=== PATIENT | female | born 1965 | race Caucasian/White ===

== ENCOUNTER 2021-06-16 19:07 | Emergency (ER) | payer BC, SELFPAY ==
[2021-06-16 19:21] VITALS: BP 152/89; PULSE 66; RESP 18; TEMP 36.2; O2SAT 98
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
== END 2021-06-16 20:18 | disposition home or self-care (01) ==
PROVIDERS: Emergency Provider Nurse Practitioner; PCP Physician Assistant
DX: T55.0X1A Toxic effect of soaps, accidental (unintentional), initial encounter (principal); T26.61XA Corrosion of cornea and conjunctival sac, right eye, initial encounter; S05.01XA Injury of conjunctiva and corneal abrasion without foreign body, right eye, initial encounter; Z85.3 Personal history of malignant neoplasm of breast; Z92.21 Personal history of antineoplastic chemotherapy
CPT/HCPCS: 99213; A9270; G0463; J7030

== ENCOUNTER 2025-02-07 15:59 | Emergency (ER) | payer OTHER, SELFPAY ==
--- OUTSIDE RECORDS SUMMARY | 2025-02-07 16:02 | XMS_ITS ---
Author Organization [facility] Address [address] [place] [address] Care Team Providers Care Para Professional Name Role Phone Yuki Abad MD Unavailable Jodi Lott MD Unavailable [phone] Shiraz Rust PhD Unavailable [phone] Ileana Salinas FLATWORK SUPERVISOR Primary Care Provider [phone] Active Problems Problem Noted Date Diagnosed Date DEDE (generalized anxiety disorder) 11/04/2024 Assessment & Plan (11/04/2024 11:26 AM CONDITIONING ROOM WORKER): Chronic, well controlled. Patient to wean off Zoloft, she is to decrease medication from 25 mg to 12.5 mg daily for one week than decrease to every other day dosing for week week, then discontinue medication. Patient to call office if any anxiety symptoms return without medication use. Follow up in 6 months. Gastroesophageal reflux disease without esophagi tis 11/04/2024 Assessment & Plan (11/04/2024 11:29 AM CONDITIONING ROOM WORKER): Chronic, controlled with omeprazole 40 mg daily and diet. Follow up in 6 months. PMB (postmenopausal bleeding) 05/11/2024 Malignant neoplasm of breast in female, estrogen receptor positive 05/11/2024 Chronic pain of right thumb 02/03/2024 Assessment & Plan (02/03/2024 9:43 AM CDT): We are going to start with x-ray Pure hypercholesterolemia 02/03/2024 Assessment & Plan (11/04/2024 11:29 AM CONDITIONING ROOM WORKER): Chronic, controlled with atorvastatin 20 mg daily and diet. Follow up in 6 months. Lab Results Component Value Date CHOL 191 01/21/2024 CHOL 187 12/19/2022 CHOL 240 (H) 11/04/2022 Lab Results Component Value Date HDL 60 01/21/2024 HDL 61 12/19/2022 HDL 59 11/04/2022 Lab Results Component Value Date LDL 108 (H) 01/21/2024 LDL 100 (H) 12/19/2022 LDL 153 (H) 11/04/2022 Lab Results Component Value Date TRIG 118 01/21/2024 TRIG 162 (H) 12/19/2022 TRIG 149 11/04/2022 supervisor intermediates (current) use of aromatase inhibitors 07/02/2021 Bone disorder 07/02/2021 Seborrheic keratosis, inflamed 05/08/2021 Assessment & Plan (02/03/2024 10:06 AM CDT): Torso with 5 inflamed seborrheic keratoses liquid verbal permission was received, liquid nitrogen performed, skin care discussed Essential hypertension 07/09/2020 Assessment & Plan (11/04/2024 11:28 AM CONDITIONING ROOM WORKER): Chronic, controlled with amlodipine 10 mg daily. Follow up in 6 months. Assessment & Plan (02/02/2024 6:19 AM CDT): Images from the original note were not included. This is a stable chronic condition. Monitor blood pressure, call if out of parameters as we discussed. Low sodium and caffeine diet. baby asa as discussed if applicable. Diet, exercise and weight reduction. Labs as ordered. F/U routine Assessment & Plan (12/23/2022 9:23 AM CDT): Images from the original note were not included. This is a stable chronic condition. Monitor blood pressure, call if out of parameters as we discussed. Low sodium and caffeine diet. baby asa as discussed if applicable. Diet, exercise and weight reduction. Labs as ordered. 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 Patient to wean off Zoloft over the next 2 weeks. Patient to call office if any depression symptoms return without medication use. Follow up in 6 months. Assessment & Plan (02/02/2024 6:18 AM CDT): Well controlled, no SI/HI Assessment & Plan (12/23/2022 9:24 AM CDT): Well controlled, no SI/HI Assessment & Plan (06/24/2022 3:43 PM CDT): Well controlled, no SI/HI, CPM Assessment & Plan (11/19/2021 2:21 PM CONDITIONING ROOM WORKER): This is well controlled will continue current meds Assessment & Plan (10/21/2021 2:16 PM CONDITIONING ROOM WORKER): Well controlled Assessment & Plan (05/08/2021 10:06 AM CDT): This is not as good a control as it used to be were going to increase to 50 mg and she is going to update me in 6 weeks there is no SI HI Assessment & Plan (05/02/2020 10:48 AM CDT): This is well controlled on low-dose patient I did discuss options of weaning off she is going to let me know when she is ready to do that she is not having any SI HI or side effects from the medication. Routine general medical exam ination at a [facility] care facility 10/31/2019 Assessment & Plan (02/02/2024 6:18 AM CDT): HEALTHCARE MAINTENANCE updated, labs ordered, p-13 today Assessment & Plan (06/24/2022 3:43 PM CDT): HEALTHCARE MAINTENANCE updated, labs ordered, p-13 today Assessment & Plan (05/08/2021 10:06 AM CDT): Healthcare maintenance updated, colonoscopy ordered, follow-up routine Assessment & Plan (05/02/2020 10:47 AM CDT): Healthcare maintenance updated, labs updated, we did discuss the shingles vaccine and given her history of cancer the Pneumovax. Follow-up annual History of breast cancer 08/20/2018 Assessment & Plan (11/04/2024 11:28 AM CONDITIONING ROOM WORKER): Patient following with oncology yearly, having yearly mammograms. Assessment & Plan (02/02/2024 6:18 AM CDT): stable Assessment & Plan (12/23/2022 9:24 AM CDT): stable Assessment & Plan (06/24/2022 3:43 PM CDT): Seeing oncology Assessment & Plan (11/19/2021 2:21 PM CONDITIONING ROOM WORKER): Doing well Encounter for follow-up surveillance of breast c hi 08/16/2018 Carcinoma of lower-outer tatiana drant of right breast in female, estrogen receptor positive 02/16/2018 Cancer Staging:Pathologic:Stage IA(pT1b, pN0, cM0, G3, ER: Positive, DC: Positive, HER2: Negative) - Signed by Yuki Abad MD on 02/16/2018 Assessment & Plan (05/02/2020 10:47 AM CDT): Patient is undergoing current treatment she had a lumpectomy done she still seen her oncologist and having no new signs and symptoms she did see certified nurse and have an updated Pap smear Current Treatment and Therapy Plans No current plan information found. Past Treatment and Therapy Plans Oncology Chemotherapy Treatment Plan Name Start Date Discontinue Date Treatment Medications Discontinue Reason Plan Provider Cycles Goserelin 28 Day Cycles - Breast 11/30/2019 02/14/2020 goserelin (ZOLADEX) Provider Discretion Jodi Lott MD 1 of 18 cycles started Oncology Treatment (2) Plan Name Start Date Discontinue Date Treatment Medications Discontinue Reason Plan Provider Cycles Goserelin Every 3 Months - Breast 02/14/2020 07/06/2023 goserelin (ZOLADEX) Therapy Complete Jodi Lott MD 20 of 20 cycles started Resolved Problems Problem Noted Date Diagnosed Date Resolved Date Need for hepatitis C screening test 02/03/2024 11/04/2024 Acne 11/19/2021 11/04/2024 Assessment & Plan (12/23/2022 9:25 AM CDT): Well controlled Assessment & Plan (11/19/2021 2:21 PM CONDITIONING ROOM WORKER): This is new, meds as ordered, follow up routine Rash 05/08/2021 11/04/2024 Elevated blood pressure reading 07/09/2020 07/09/2020 Flushing 07/09/2020 11/04/2024 Malignant neoplasm of lower- outer quadrant of right breast of female, estrogen receptor positive (CMS/HCC) 11/15/2019 07/03/2021 Malignant neoplasm of unspec ified site of right male breast 08/19/2018 07/03/2021 Assessment & Plan (05/08/2021 10:06 AM CDT): Patient is up-to-date on her mammogram and through with treatment will continue to follow Breast lump 05/19/2017 07/03/2021
--- OUTSIDE RECORDS SUMMARY | 2025-02-07 16:02 | XMS_ITS | Encounter Summary ---
Author Organization [facility] Healthcare Address [address] [place] [address] Care Team Providers Care Counter Top Assembler Name Role Phone Yuki Abad MD Unavailable Jodi Lott MD Unavailable [phone] Shiraz Rust PhD Unavailable Ileana Salinas ROOFING APPLICATOR Primary Care Provider [phone] Reason for Visit * Reason Onset Date Comments Poison Annia 02/07/2025 Encounter Details Date Type Department Care Team ([facility] st Contact Info) Description 02/07/2025 Nurse Triage [facility] Medical Group Primary Care [address] [address] Ileana Salinas, ROOFING APPLICATOR [address] [place] [id number] Social History Tobacco Use Types Packs/Day Years Used Date Smoking Tobacco: Never Cigarettes Smokeless Tobacco: Never Alcohol Use Standard Drinks/Week Comments Yes 0 (1 standard drink = 0.6 oz pur e alcohol) social AUDIT-C Answer Date Recorded Q1: How often do you have a drink containing alcohol? 4 or more times a week 11/04/2024 Q2: How many drinks containi ng alcohol do you have on a typical day when you are drinking? 3 or 4 Q3: How often do you have si x or more drinks on one occasion? Weekly 11/04/2024 PHQ-2 Answer Date Recorded PHQ-2 Total Score (If total score is 3 or more points, staff should administer the PHQ-9) 0 03/31/2024 Personal Safety Answer Date Recorded Have you ever been in or are you currently in a harmful physical or emotional relationship or is someone making you feel afraid or unsafe? 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 Ongoing 2 weeks. Using Ivyrest and Calamine. No fevers. No open areas or weeping. No weakness or dizziness. No SOB or breathing issues. Disposition is see today. No available PCP appts. Offered [facility] CC and pt declined-prefers to head tonearby familiar UC. * Telephone Encounter - Lianna Donald RN - 02/07/2025 3:39 PM CDT Regarding: Very itchy red rash on thigh, arms and face. Patient stated poison annia ----- Message from Courtney Regan sent at 02/07/2025 11:26 AM CDT ----- Symptom Based Call Chief Complaint(s): Very itchy red rash on thigh, arms and face. Patient stated poison annia Duration: Two weeks but is spreading What type of symptom(s) is the patient experiencing? Non-Emergent. Is this a new or reoccurring symptom(s)? New What have you tried to help your symptom(s)? Calamine lotion and Ivarest Why was appointment not scheduled? Appointment availability did not meet the patient's need. Additional Comments: None Does message need to be routed? Yes-Action Needed documented in this encounter Plan of Treatment Not on file documented as of this encounter Visit Diagnoses Not on filedocumented in this encounter Care Teams Counter Top Assembler Relationship Specialty Start Date End Date Ileana Salinas, ROOFING APPLICATOR [address] [place] [id number] PCP - General Family Medicine 03/31/24 Yuki Abad MD [address] [place] [address] Radiation Oncologist Radiation Oncology 08/16/18 Jodi Lott MD [address] [place] [address] Medical Oncologist/Commercial Instructor Supervisor Medical Oncology 08/16/18 Shiraz Rust, PhD [address] [place] [address] Nurse Practitioner Radiation Oncology 08/16/18 documented as of this encounter
--- OUTSIDE RECORDS SUMMARY | 2025-02-07 16:02 | XMS_ITS | Clinical Summary ---
Author Organization [facility] Address [address] [place] [address] Care Team Providers Care Software Educator Name Role Phone Yuki Abad MD Unavailable Jodi Lott MD Unavailable [phone] Shiraz Rust PhD Unavailable [phone] Ileana Salinas SUPERVISOR NUT PROCESSING Primary Care Provider [phone] Allergies Active Allergy Reactions Criticality Noted Date Comments Adhesive Blisters High 11/04/2024 Clarithromycin Diarrhea Low 03/01/2019 Loracarbef Diarrhea Low 03/01/2019 Piroxicam Unknown 06/18/2017 Medications multivit with minerals/lutein (MULTIVITAMIN 50 PLUS ORAL) Rx: Multivitamin Active calcium-vits W0-[id number]-I9-minerals 166.75 mg- 166.75 unit capsule Rx: Calcium Active vitamin B complex (B COMPLEX 1 ORAL) Rx: B Complex Active vitamin E acetate (VITAMIN E ORAL) Take by mouth Active cholecalciferol, vitamin D3, (VITAMIN D3 ORAL) Take by mouth Active omeprazole (PriLOSEC) 40 mg capsuleIndications:Gas troesophageal reflux disease without esophagitis Take 1 capsule (40 mg total) by mouth daily 90 capsule 3 2023 Active atorvastatin (LIPITOR) 20 mg tabletIndications:Pure hypercholesterolemia Take 1 tablet (20 mg total) by mouth daily 90 tablet 3 2023 Active sertraline (ZOLOFT) 50 mg tabletIndications:Mild episode of recurrent major depressive disorder,Gastroesophag eal reflux disease without esophagitis Take 1 tablet by mouth once daily 90 tablet 1 2023 Active Additional Information Patient taking differently:50 mg oral Daily,Taking 1/2 tab, Reported on 11/04/2024 metroNIDAZOLE (METROGEL) 0.75 % gel 2023 Active amLODIPine (NORVASC) 10 mg tabletIndications:Esse ntial hypertension Take 1 tablet by mouth once daily 90 tablet 2024 Active amLODIPine (NORVASC) 10 mg tabletIndications:Esse ntial hypertension Take 1 tablet (10 mg total) by mouth daily 90 tablet 1 01/23 Discontinued Active Problems Problem Noted Date Diagnosed Date DEDE (generalized anxiety disorder) 11/04/2024 Assessment & Plan (11/04/2024 11:26 AM MANUSCRIPT READER): Chronic, well controlled. Patient to wean off [...] 11/04/2024 Assessment & Plan (11/04/2024 11:29 AM MANUSCRIPT READER): Chronic, controlled with omeprazole 40 mg daily and diet. Follow up in 6 months. PMB (postmenopausal bleeding) 05/11/2024 Malignant neoplasm of breast in female, estrogen receptor positive 05/11/2024 Chronic pain of right thumb 02/03/2024 Assessment & Plan (02/03/2024 9:43 AM CDT): We are going to start with x-ray Pure hypercholesterolemia 02/03/2024 Assessment & Plan (11/04/2024 11:29 AM MANUSCRIPT READER): Chronic, controlled with atorvastatin 20 mg daily [...] TRIG 162 (H) 12/19/2022 TRIG 149 11/04/2022 long term care phlebotomist (current) use of aromatase inhibitors 07/02/2021 Bone disorder 07/02/2021 Seborrheic keratosis, inflamed 05/08/2021 Assessment & Plan (02/03/2024 10:06 AM CDT): Torso with 5 inflamed seborrheic keratoses liquid verbal permission was received, liquid nitrogen performed, skin care discussed Essential hypertension 07/09/2020 Assessment & Plan (11/04/2024 11:28 AM MANUSCRIPT READER): Chronic, controlled with amlodipine 10 mg daily. [...] weeks Assessment & Plan (11/19/2021 2:21 PM MANUSCRIPT READER): Not controlled, increase medications to 5 And Monitor BP Assessment & Plan (10/21/2021 2:16 PM MANUSCRIPT READER): Stop lisinopril, start narvosc, 5 day blood pressure Mild episode of recurrent major depressive disor aleks 05/02/2020 Assessment & Plan (11/04/2024 11:27 AM MANUSCRIPT READER): Chronic, well controlled. Patient to wean off [...] CPM Assessment & Plan (11/19/2021 2:21 PM MANUSCRIPT READER): This is well controlled will continue current meds Assessment & Plan (10/21/2021 2:16 PM MANUSCRIPT READER): Well controlled Assessment & Plan (05/08/2021 10:06 [...] Routine general medical exam ination at a health care facility 10/31/2019 Assessment & Plan (02/02/2024 [...] 08/20/2018 Assessment & Plan (11/04/2024 11:28 AM MANUSCRIPT READER): Patient following with oncology yearly, having yearly mammograms. Assessment & Plan (02/02/2024 6:18 AM CDT): stable Assessment & Plan (12/23/2022 9:24 AM CDT): stable Assessment & Plan (06/24/2022 3:43 PM CDT): Seeing oncology Assessment & Plan (11/19/2021 2:21 PM MANUSCRIPT READER): Doing well Encounter for follow-up surveillance of breast c ancer 08/16/2018 Carcinoma of lower-outer tatiana drant of right breast in female, estrogen receptor positive 02/16/2018 Cancer Staging:Pathologic:Stage IA(pT1b, pN0, cM0, G3, ER: Positive, IN: Positive, HER2: Negative) - Signed by Yuki Abad MD on 02/16/2018 Assessment & Plan (05/02/2020 10:47 AM CDT): Patient is undergoing current treatment she had a lumpectomy done she still seen her oncologist and having no new signs and symptoms she did see obstetrics gynecology physician and have an updated Pap smear Resolved Problems Problem Noted Date Diagnosed Date Resolved Date Need for hepatitis C screening test 02/03/2024 11/04/2024 Acne 11/19/2021 11/04/2024 Assessment & Plan (12/23/2022 9:25 AM CDT): Well controlled Assessment & Plan (11/19/2021 2:21 PM MANUSCRIPT READER): This is new, meds as ordered, follow [...] continue to follow Breast lump 05/19/2017 07/03/2021 Encounters Date Type Department Care Team Description 02/07/2025 Nurse Triage [facility] [address] [place] [address] [place] [id number] Ileana Salinas, SUPERVISOR NUT PROCESSING from Last 3 Months Immunizations Immunization Administration Dates Next Due Flucelvax Influenza Quad 06/23/2017 Influenza, Quadrivalent, Jane l Culture-based MDCK, Preservative Free, Antibiotic Free, Intramuscular 06/23/2017 Influenza, Quadrivalent, Spl it, Preservative Free, Intramuscular 07/25/2022 Influenza, Trivalent, IM (MDV) 07/11/2013 Influenza, Trivalent, Preser vative Free, Intramuscular 06/25/2024 Influenza, Unspecified 06/20/2023,2021,06/20/2021,06/14 Moderna SARS-CoV-2 Monovalen t Vaccination (12+ YRS) 01/03/2021,12/06/2020 Pneumococcal Conjugate PCV 13 06/24/2022 ZOSTER Recombinant 11/27/2023,09/18/2023 Surgical History Surgery Date Site/Laterality Comments BREAST LUMPECTOMY 09/14/2016 - 09/13/2017 Right radiation tx BUNIONECTOMY 09/14/1994 - 09/13/1995 Right BREAST BIOPSY 03/28/2024 Right Medical History Medical History Date Comments Breast cancer (HCC) Hypertension Peptic ulceration I have stomach pain need to discuss PMB (postmenopausal bleeding) 05/11/2024 Malignant neoplasm of breast in female, estrogen receptor positive (HCC) 05/11/2024 Mild episode of recurrent ma evelyn depressive disorder 05/02/2020 Pure hypercholesterolemia 02/03/2024 Motion sickness GERD (gastroesophageal reflux disease) Family History Medical History Relation Name Comments Cancer Father Piotr Lung cancer Father Piotr Family history of lung cancer - (Added by TW Conv) Arthritis Mother Jacqui Diabetes Mother Jacqui Hearing loss Mother Jacqui Hypertension Mother Jacqui Vision loss Paternal Grandmother Sara Yanes Breast cancer Neg Hx Ovarian cancer Neg Hx Uterine cancer Neg Hx Relation Name Status Comments Father Piotr Mother Jacqui Alive Paternal Grandmother Sara Yanes Social History Tobacco Use Types Packs/Day Years Used Date Smoking Tobacco: Never Cigarettes Smokeless Tobacco: Never Tobacco Cessation:Counseling Given: Not Answered Alcohol Use Standard Drinks/Week Comments Yes 0 [...] on file Legal Sex Female 1:35 AM MANUSCRIPT READER Gender Identity Not on file Sexual Orientation Not on file Obstetrics History Para Term AB IAB SAB Ectopic Multiple Livin g Live Births 3 2 2 1 1 2 2 Date Outcome GA Total Labor Labor/2nd/3rd Weight Sex Type Anes PTL Ruthie A1 A5 Name Clin 1994 Term F Vag-S pont Living 1996 Term F Vag-S pont Living Comments Last Filed Vital Signs Vital Sign Reading Time Taken Comments Blood Pressure 121/80 11/04/2024 10:33 AM MANUSCRIPT READER Pulse 70 11/04/2024 10:33 AM MANUSCRIPT READER Temperature 36.4 C (97.6 F) 11/04/2024 10:33 AM MANUSCRIPT READER Respiratory Rate 18 11/04/2024 10:3 3 AM MANUSCRIPT READER Oxygen Saturation 98% 11/04/2024 10: 33 AM MANUSCRIPT READER Inhaled Oxygen Concentration - - Weight 83.8 kg (184 lb 11.2 oz) 025 10:33 AM MANUSCRIPT READER Height 166.4 cm (5' 5.5) 11/04/2024 10 :33 AM MANUSCRIPT READER Body Mass Index 30.27 11/04/2024 10:33 AM MANUSCRIPT READER Plan of Treatment Health Maintenance Due Date Last Done Comments Hepatitis C Screening 1966 DTaP/Tdap/Td Vaccine (1 - Tdap) 1977 Hepatitis B Screening 1984 Regular Well Visit/Exam 18-64 02/02/2025 02/03/2024, 06/24/2022, 05/08/2021, Additional history exists Breast Cancer Screening-Mammogram 03/21/2025 03/21/2024, 03/18/2023, 03/13/2022, Additional history exists Depression Screening 03/31/2025 03/31/2024, 02/03/2024, 06/24/2022, Additional history exists Cervical Cancer Screening 04/08/20252023, 04/08/2024, 05/08/2021 Colon Cancer Screening-Colonoscopy 03/03/2029 03/03/2022, 03/03/2022 Colon Cancer Screening-CT Colonography Discontinued 03/03/2022, 03/03/2022 Colon Cancer Screening-DNA Stool Discontinued 03/03/2022, 03/03/2022 Colon Cancer Screening-FIT Discontinued 03/03/2022, Colon Cancer Screening-Sigmoidoscopy Discontinued 03/03/2022, 03/03/2022 Pneumococcal vaccine <65 Aged Out 06/24/2022 No longer eligible based on patient's age to complete this topic Covid-19 Vaccine Discontinued 09/18/2023, 07/2022, 08/22/2021, Additional history exists Zoster Vaccine Completed 11/27/2023, 09/18/2023 Influenza Vaccine Completed 06/25/2024, , 07/25/2022, Additional history exists Medical Devices Implanted Type Area Roller Setter Device Identifier Shelf Expiration Date Model / Serial / Lot Pin Right: Foot Marker Right: Breast Bard Peripheral Vascular Ultraclip Bard 17ga 10cm 2 Trigger Permanent Ultrasound [id number] - [id number] Implanted:Qty: 1 on 03/28/2024 by Emre Lewis MD at [facility] Right: Breast Bard Peripheral Vascular [id number] / / Procedures Procedure Name Priority Date/Time Associated Diagnosis Comments HIGH RISK HPV DNA DETECTION WITH GENOTYPING Routine 04/08/2024 3:31 PM CDT Screening for cervical cancer DIAGNOSTIC MAMMOGRAM BILATERAL W SEFERINO Schedule Routine, Read Routine (OP Routine) 03/21/2024 12:19 PM CDT Mass of breast, unspecified laterality COLONOSCOPY Routine 03/03/2022 from Last 3 Months or Most Recently Relevant to Health Maintenance Results * High Risk HPV DNA Detection with Genotyping (Molecular component) (04/08/2024 3:31 PM CDT) HPV HR [address] [facility] Comment:Testing performed by : [facility], [address] [facility]., [address] HPV HR 18 Not Detected Not Detected [facility]ANKEL Comment:Testing performed by : [facility], [address] [facility]., [address] HPV HR Non 16/18 Not Detected Not Detected [facility] Comment: Interpretive Data Nucleic acid amplification for detection of high-risk Human Papilloma virus (HPV) is performed by the Elan Thomas 6800 HPV test. This assay specifically detects HPV-16 and HPV-18 genotypes. The following HPV genotypes are detected as high-risk HPV: HPV-31, 33, 35, ,39, 45, 51, 52, 56, 58, 59, 66, and 68. This assay has been approved by the [place] Food and Drug Administration for detection of HPV in cervical specimens collected by a physician using an endocervical brush/spatula or cervical broom and placed in the ThinPrep Pap Test PreservCyt collection containers. The performance characteristics of this test have been verified by the [facility] Molecular Infectious Disease laboratory. Correlate with separately reported cytology results, as applicable. Interpretive data last revised 23 Testing performed by: [facility], [address] [facility] [place]., [address] Endocervical 04/08/2024 3:31 PM CDT 04/11/2024 9:24 AM CDT Narrative LALA - 04/11/2024 11:51 PM CDT Clinical history and diagnosis->screening Testing type->Screening Last menstrual period (date if known)->postmenopausal Ami Seay MD LAB BODY FLUIDS AND STOOL S ORDERABLES Final Result [facility] [address] [facility] [place] [address] [facility] * Diagnostic Mammogram Bilateral W Seferino (03/21/2024 12:19 PM CDT) Anatomical Region Laterality Modality Breast Bilateral Mammography 03/21/2024 2:28 PM CDT Impressions 03/21/2024 4:46 PM CDT 1. 0.6 cm mass in the RIGHT breast at 7:30, 10 cm from the nipple, adjacent to the lumpectomy site in the area of patient's palpable concern. Although this may represent postsurgical change, recommend ultrasound-guided biopsy given that it is not immediately contiguous with lumpectomy scar. 2. No mammographic evidence of malignancy in the LEFT breast. The method of initial detection of finding was patient-reported clinical symptom (Pat). OVERALL FINAL ASSESSMENT: SUSPICIOUS. BI-RADS Category 4B: Moderate suspicion for malignancy. RECOMMENDATION: Ultrasound-guided biopsy of the RIGHT breast at 7:30, 10 cm from the nipple. Dr. Vasquez discussed the above findings and recommendations with the patient. She has been scheduled to return to the [facility] for biopsy on 03/28/2024 at 2:30 PM. This facility will contact the referring clinician's office for an order. Dictated by: Ines Vasquez M.D. The radiology attending physician has personally reviewed this study, and had reviewed and/or edited this written report and agrees with it. Electronically signed by: Eva Antony M.D. Narrative 03/21/2024 4:46 PM CDT EXAMINATION: BILATERAL DIGITAL DIAGNOSTIC MAMMOGRAM INCLUDING CAD AND BILATERAL DIGITAL BREAST TOMOSYNTHESIS; RIGHT BREAST SONOGRAM HISTORY: 58-year-old woman with history of RIGHT breast conservation therapy in 2017 for invasive ductal carcinoma. She presents with thickening and tenderness at the surgical site for the past 2 months. COMPARISON: Screening mammogram, most recent 03/18/2023. TECHNIQUE: Full field digital mammographic views of BOTH breasts were performed, including computer aided detection (CAD) and BILATERAL digital breast tomosynthesis (DBT). Directed ultrasound evaluation of the RIGHT breast was performed. BREAST PARENCHYMAL COMPOSITION: There are scattered areas of fibroglandular density. MAMMOGRAM FINDINGS: There are postsurgical changes of breast conservation therapy in the lower outer RIGHT breast. A triangular marker corresponding to patient's palpable concern overlies the breast conservation therapy changes. There is no suspicious mass, architectural distortion or grouped microcalcifications in the LEFT breast. SONOGRAM FINDINGS: Targeted sonogram of the RIGHT breast was performed at 7:30, 10 cm from the nipple, in the area of palpable concern. There is an indistinct hypoechoic mass measuring 0.6 x 0.4 x 0.4 cm adjacent to the lumpectomy site No internal vascularity. RIGHT axillary sonogram demonstrates normal axillary lymph nodes. Procedure Note Eva Antony MD - 03/21/2024 EXAMINATION: BILATERAL DIGITAL DIAGNOSTIC MAMMOGRAM INCLUDING CAD AND BILATERAL DIGITAL BREAST TOMOSYNTHESIS; RIGHT BREAST SONOGRAM HISTORY: 58-year-old woman with history of RIGHT breast conservation therapy in 2017 for invasive ductal carcinoma. She presents with thickening and tenderness at the surgical site for the past 2 months. COMPARISON: Screening mammogram, most recent 03/18/2023. TECHNIQUE: Full field digital mammographic views of BOTH breasts were performed, including computer aided detection (CAD) and BILATERAL digital breast tomosynthesis (DBT). Directed ultrasound evaluation of the RIGHT breast was performed. BREAST PARENCHYMAL COMPOSITION: There are scattered areas of fibroglandular density. MAMMOGRAM FINDINGS: There are postsurgical changes of breast conservation therapy in the lower outer RIGHT breast. A triangular marker corresponding to patient's palpable concern overlies the breast conservation therapy changes. There is no suspicious mass, architectural distortion or grouped microcalcifications in the LEFT breast. SONOGRAM FINDINGS: Targeted sonogram of the RIGHT breast was performed at 7:30, 10 cm from the nipple, in the area of palpable concern. There is an indistinct hypoechoic mass measuring 0.6 x 0.4 x 0.4 cm adjacent to the lumpectomy site No internal vascularity. RIGHT axillary sonogram demonstrates normal axillary lymph nodes. IMPRESSION: 1. 0.6 cm mass in the RIGHT breast at 7:30, 10 cm from the nipple, adjacent to the lumpectomy site in the area of patient's palpable concern. Although this may represent postsurgical change, recommend ultrasound-guided biopsy given that it is not immediately contiguous with lumpectomy scar. 2. No mammographic evidence of malignancy in the LEFT breast. The method of initial detection of finding was patient-reported clinical symptom (Pat). OVERALL FINAL ASSESSMENT: SUSPICIOUS. BI-RADS Category 4B: Moderate suspicion for malignancy. RECOMMENDATION: Ultrasound-guided biopsy of the RIGHT breast at 7:30, 10 cm from the nipple. Dr. Vasquez discussed the above findings and recommendations with the patient. She has been scheduled to return to the [facility] for biopsy on 03/28/2024 at 2:30 PM. This facility will contact the referring clinician's office for an order. Dictated by: Ines Vasquez M.D. The radiology attending physician has personally reviewed this study, and had reviewed and/or edited this written report and agrees with it. Electronically signed by: Eva Antony M.D. Joe MURPHY IMG MAMMO PROCEDURES Final Resu lt * Colonoscopy (03/03/2022) Anatomical Region Laterality Modality Other Historical Provider ENDOSCOPY PROCEDURES [place] l Result from Last 3 Months or Most Recently Relevant to Health Maintenance Insurance [facility] CHOICE PLUS [facility] CHOICE PLUS Care Teams Software Educator Relationship Specialty Start Date End Date Ileana Salinas, SUPERVISOR NUT PROCESSING [facility] [address] PCP - General Family Medicine 03/31/24 uYki Abad MD [address] [facility] [address] [place] [address] Radiation Oncologist Radiation Oncology 08/16/18 Jodi Lott MD [address] [facility] [address] [place] [address] Medical Oncologist/Cue Selector Medical Oncology 08/16/18 Shiraz Rust, PhD [address] [facility] [address] [place] [address] Nurse Practitioner Radiation Oncology 08/16/18
--- OUTSIDE RECORDS SUMMARY | 2025-02-07 16:02 | XMS_ITS | Encounter Summary ---
Author Organization [facility] Facility Care Team Providers Care Title Insurance Examiner Name Role Phone Joe Leiva Primary Care Provider [phone] Yuki Abad MD Unavailable Jodi Lott MD Unavailable [phone] Erin Roldan REALTIME REPORTER Unavailable [phone] Shiraz Rust PhD Unavailable [phone] Ileana Salinas NP Primary Care Provider [phone] Encounter Details Date Type Department Care Team (Latest Contact Info) Description 06/11/2017 Orders Only [facility] CLINCONV Provider, MD Valente [address] [place] [id number] Social History Tobacco Use Types Packs/Day Years Used Date Smoking Tobacco: Never Assessed Comments Unknown Sex and Gender Information Value Date Recorded Sex Assigned at Not on file Legal Sex Female 1:35 AM PLATE MAKER Gender Identity Not on file Sexual Orientation Not on file documented as of this encounter Plan of Treatment Not on file documented as of this encounter Procedures Procedure Name Priority Date/Time Associated Diagnosis Comments PROCEDURE - RESULT 10/06/2017 12 :00 AM PLATE MAKER PROCEDURE - RESULT 06/11/2017 12 :00 AM CDT documented in this encounter Results * PROCEDURE - RESULT (10/06/2017 12:00 AM PLATE MAKER) Narrative 10/06/2017 12:00 AM PLATE MAKER Ordered by an unspecified provider. Historical Provider Final Res ult * PROCEDURE - RESULT (06/11/2017 12:00 AM CDT) Narrative 06/11/2017 12:00 AM CDT Ordered by an unspecified provider. Historical Provider Final Res ult documented in this encounter Visit Diagnoses Not on filedocumented in this encounter Care Teams Title Insurance Examiner Relationship Specialty Start Date End Date Joe Leiva PA PCP - General 12/11/17 03/30/24 Ileana Salinas, PROGRAM SERVICES ASSISTANT [address] [place] [id number] PCP - General Family Medicine 03/31/24 Yuki Abad MD [address] [place] [address] Radiation Oncologist Radiation Oncology 08/16/18 Jodi Lott MD [address] [place] [address] Medical Oncologist/Oracle Applications Analyst Medical Oncology 08/16/18 Erin Roldan, REALTIME REPORTER [address] [place] [address] Nurse Practitioner Certified Clinical Nurse Specialist 08/16/18 05/07/22 Shiraz Rust, PhD [address] [place] [address] Nurse Practitioner Radiation Oncology 08/16/18 documented as of this encounter
--- OUTSIDE RECORDS SUMMARY | 2025-02-07 16:02 | XMS_ITS | Encounter Summary ---
Author Organization [facility] Facility Care Team Providers Care Executive Vp Name Role Phone Joe Leiva Primary Care Provider [phone] Yuki Abad MD Unavailable Jodi Lott MD Unavailable [phone] Erin Roldan INSULATION SUPERVISOR Unavailable [phone] Shiraz Rust PhD Unavailable [phone] Ileana Salinas NP Primary Care Provider [phone] Encounter Details Date Type Department Care Team (Latest Contact Info) Description 11/04/2016 Orders Only [facility] CLINCONV Provider, MD Valente [address] [place] [address] Social History Tobacco Use Types Packs/Day Years Used Date Smoking Tobacco: Never Assessed Comments Unknown Sex and Gender Information Value Date Recorded Sex Assigned at Not on file Legal Sex Female 1:35 AM BIOINFORMATICS TECHNICIAN Gender Identity Not on file Sexual Orientation Not on file documented as of this encounter Plan of Treatment Not on file documented as of this encounter Procedures Procedure Name Priority Date/Time Associated Diagnosis Comments SCAN - PATHOLOGY 11/04/2016 12:0 0 AM BIOINFORMATICS TECHNICIAN documented in this encounter Results * SCAN - PATHOLOGY (11/04/2016 12:00 AM BIOINFORMATICS TECHNICIAN) Narrative 11/04/2016 12:00 AM BIOINFORMATICS TECHNICIAN Ordered by an unspecified provider. us Historical Provider Final Res ult documented in this encounter Visit Diagnoses Not on filedocumented in this encounter Care Teams Executive Vp Relationship Specialty Start Date End Date Joe Leiva PA PCP - General 12/11/17 03/30/24 Ileana Salinas, NEIGHBORHOOD PLANNER [address] [place] [id number] PCP - General Family Medicine 03/31/24 Yuki Abad MD [address] [facility] [address] [place] [address] Radiation Oncologist Radiation Oncology 08/16/18 Jodi Lott MD [address] [facility] [address] [place] [address] Medical Oncologist/Hogshead Weigher Medical Oncology 08/16/18 Erin Roldan, INSULATION SUPERVISOR [address] [facility] [address] [place] [address] Nurse Practitioner Certified Clinical Nurse Specialist 08/16/18 05/07/22 Shiraz Rust, PhD [address] [facility] [address] [place] [address] Nurse Practitioner Radiation Oncology 08/16/18 documented as of this encounter
--- OUTSIDE RECORDS SUMMARY | 2025-02-07 16:02 | XMS_ITS | Encounter Summary ---
Author Organization [facility] Address [address] [place] [address] Phone Care Team Providers Care Stoneworking Belt Sander Name Role Phone Joe Leiva Primary Care Provider [phone] Yuki Abad MD Unavailable Jodi Lott MD Unavailable [phone] Erin Roldan FARM MACHINERY ENGINE MECHANIC Unavailable [phone] Shiraz Rust PhD Unavailable [phone] Ileana Salinas NP Primary Care Provider [phone] Encounter Details Date Type Department Care Team (Late st Contact Info) Description 09/14/2017 Orders Only [facility] ProviderValente MD [address] [place] [address] Social History Tobacco Use Types Packs/Day Years Used Date Smoking Tobacco: Never Assessed Comments Unknown Sex and Gender Information Value Date Recorded Sex Assigned at Not on file Legal Sex Female 1:35 AM PHOTOGRAPHY COORDINATOR Gender Identity Not on file Sexual Orientation Not on file documented as of this encounter Plan of Treatment Not on file documented as of this encounter Procedures Procedure Name Priority Date/Time Associated Diagnosis Comments DISCHARGE LABORATORY CUMULATIVE REPORT 09/14/2017 12:00 AM PHOTOGRAPHY COORDINATOR documented in this encounter Results * DISCHARGE LABORATORY CUMULATIVE REPORT (09/14/2017 12:00 AM PHOTOGRAPHY COORDINATOR) Narrative 09/14/2017 12:00 AM PHOTOGRAPHY COORDINATOR Ordered by an unspecified provider. us Historical Provider LAB BLOOD ORDERABLES Cheyenne l Result documented in this encounter Visit Diagnoses Not on filedocumented in this encounter Care Teams Stoneworking Belt Sander Relationship Specialty Start Date End Date Joe Leiva PA PCP - General 12/11/17 03/30/24 Ileana Salinas, LINE SUPERVISOR [address] [place] [address] PCP - General Family Medicine 03/31/24 Yuki Abad MD [address] [place] [address] Radiation Oncologist Radiation Oncology 08/16/18 Jodi Lott MD [address] [place] [address] Medical Oncologist/Shuttle Inspector Medical Oncology 08/16/18 Erin Roldan, FARM MACHINERY ENGINE MECHANIC [address] [place] [address] Nurse Practitioner Certified Clinical Nurse Specialist 08/16/18 05/07/22 Shiraz Rust, PhD [address] [place] [address] Nurse Practitioner Radiation Oncology 08/16/18 documented as of this encounter
--- OUTSIDE RECORDS SUMMARY | 2025-02-07 16:02 | XMS_ITS | Encounter Summary ---
Author Organization [facility] Address [address] [place] [address] Phone Care Team Providers Care Bookkeeping Service Sales Agent Name Role Phone Joe Leiva Primary Care Provider [phone] Yuki Abad MD Unavailable Jodi Lott MD Unavailable [phone] Erin Roldan IRON BENDER Unavailable [phone] Shiraz Rust PhD Unavailable [phone] Ileana Salinas NP Primary Care Provider [phone] Encounter Details Date Type Department Care Team (Late st Contact Info) Description 10/13/2017 Orders Only [facility] ProviderValente MD [address] [place] [address] Social History Tobacco Use Types Packs/Day Years Used Date Smoking Tobacco: Never Assessed Comments Unknown Sex and Gender Information Value Date Recorded Sex Assigned at Not on file Legal Sex Female 1:35 AM CABLE SPLICER Gender Identity Not on file Sexual Orientation Not on file documented as of this encounter Plan of Treatment Not on file documented as of this encounter Procedures Procedure Name Priority Date/Time Associated Diagnosis Comments GENERAL RADIOLOGY REPORT 10/13/2017 documented in this encounter Results * GENERAL RADIOLOGY REPORT (10/13/2017) Anatomical Region Laterality Modality Radiographic Iqra ging Narrative 10/13/2017 Ordered by an unspecified provider. us Historical Provider MD [place] XR PROCEDURES Final R esult documented in this encounter Visit Diagnoses Not on filedocumented in this encounter Care Teams Bookkeeping Service Sales Agent Relationship Specialty Start Date End Date Joe Leiva PA PCP - General 12/11/17 03/30/24 Ileana Salinas, QUITLINE COUNSELOR [address] [place] [address] PCP - General Family Medicine 03/31/24 Yuki Abad MD [address] [place] [address] Radiation Oncologist Radiation Oncology 08/16/18 Jodi Lott MD [address] [place] [address] Medical Oncologist/Marketing Community Liaison Medical Oncology 08/16/18 Erin Roldan, IRON BENDER [address] [place] [address] Nurse Practitioner Certified Clinical Nurse Specialist 08/16/18 05/07/22 Shiraz Rust, PhD [address] [place] [address] Nurse Practitioner Radiation Oncology 08/16/18 documented as of this encounter
--- OUTSIDE RECORDS SUMMARY | 2025-02-07 16:02 | XMS_ITS | Referral Summary ---
Author Organization [facility] Address [address] [place] [address] Care Team Providers Care Golf Ball Cover Treater Name Role Phone Yuki Abad MD Unavailable Jodi Lott MD Unavailable [phone] Shiraz Rust PhD Unavailable [phone] Ileana Salinas GALLERY ASSISTANT Primary Care Provider [phone] Encounters Date Type Department Care Team Description 02/07/[address] [facility] Primary [facility] [address] [place] [phone] Ileana aSlinas, GALLERY ASSISTANT from Last 3 Months Allergies Active Allergy Reactions Criticality Noted Date Comments Adhesive Blisters High 11/04/2024 Clarithromycin Diarrhea Low 03/01/2019 Loracarbef Diarrhea Low 03/01/2019 Piroxicam Unknown 06/18/2017 Medications multivit with minerals/lutein (MULTIVITAMIN 50 PLUS ORAL) Rx: Multivitamin Active calcium-vits J1-A-O8-minerals 166.75 mg- 166.75 unit capsule Rx: Calcium [...] 11/04/2024 Assessment & Plan (11/04/2024 11:26 AM FORESTRY ENGINEER): Chronic, well controlled. Patient to wean off [...] 11/04/2024 Assessment & Plan (11/04/2024 11:29 AM FORESTRY ENGINEER): Chronic, controlled with omeprazole 40 mg daily and diet. Follow up in 6 months. PMB (postmenopausal bleeding) 05/11/2024 Malignant neoplasm of breast in female, estrogen receptor positive 05/11/2024 Chronic pain of right thumb 02/03/2024 Assessment & Plan (02/03/2024 9:43 AM CDT): We are going to start with x-ray Pure hypercholesterolemia 02/03/2024 Assessment & Plan (11/04/2024 11:29 AM FORESTRY ENGINEER): Chronic, controlled with atorvastatin 20 mg daily [...] TRIG 162 (H) 12/19/2022 TRIG 149 11/04/2022 terminal operations supervisor (current) use of aromatase inhibitors 07/02/2021 Bone disorder 07/02/2021 Seborrheic keratosis, inflamed 05/08/2021 Assessment & Plan (02/03/2024 10:06 AM CDT): Torso with 5 inflamed seborrheic keratoses liquid verbal permission was received, liquid nitrogen performed, skin care discussed Essential hypertension 07/09/2020 Assessment & Plan (11/04/2024 11:28 AM FORESTRY ENGINEER): Chronic, controlled with amlodipine 10 mg daily. 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 Patient to wean off [...] CPM Assessment & Plan (11/19/2021 2:21 PM FORESTRY ENGINEER): This is well controlled will continue current meds Assessment & Plan (10/21/2021 2:16 PM FORESTRY ENGINEER): Well controlled Assessment & Plan (05/08/2021 10:06 [...] 08/20/2018 Assessment & Plan (11/04/2024 11:28 AM FORESTRY ENGINEER): Patient following with oncology yearly, having yearly mammograms. 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, estrogen receptor positive 02/16/2018 Cancer Staging:Pathologic:Stage IA(pT1b, pN0, cM0, G3, ER: Positive, ID: Positive, HER2: Negative) - Signed by Yuki Aabd MD on 02/16/2018 Assessment & Plan (05/02/2020 10:47 AM CDT): Patient is undergoing current treatment she had a lumpectomy done she still seen her oncologist and having no new signs and symptoms she did see mechanic general operational test and have an updated Pap smear Resolved Problems Problem Noted Date Diagnosed Date Resolved Date Need for hepatitis C screening test 02/03/2024 11/04/2024 Acne 11/19/2021 11/04/2024 Assessment & Plan (12/23/2022 9:25 AM CDT): Well controlled Assessment & Plan (11/19/2021 2:21 PM FORESTRY ENGINEER): This is new, meds as ordered, follow [...] continue to follow Breast lump 05/19/2017 07/03/2021 Immunizations Immunization Administration Dates Next Due Flucelvax Influenza Quad 06/23/2017 Influenza, Quadrivalent, Jane l Culture-based MDCK, Preservative Free, Antibiotic Free, Intramuscular 06/23/2017 Influenza, Quadrivalent, Spl it, Preservative Free, Intramuscular 07/25/2022 Influenza, Trivalent, IM (MDV) 07/11/2013 Influenza, Trivalent, Preser vative Free, Intramuscular 06/25/2024 Influenza, Unspecified 06/20/2023,2021,06/20/2021,06/14 Moderna SARS-CoV-2 Monovalen t Vaccination (12+ YRS) 01/03/2021,12/06/2020 Pneumococcal Conjugate PCV 13 06/24/2022 ZOSTER Recombinant 11/27/2023,09/18/2023 Social History Tobacco Use Types Packs/Day Years [...] on file Legal Sex Female 1:35 AM FORESTRY ENGINEER Gender Identity Not on file Sexual Orientation Not on file Last Filed Vital Signs Vital Sign Reading Time Taken Comments Blood Pressure 121/80 11/04/2024 10:33 AM FORESTRY ENGINEER Pulse 70 11/04/2024 10:33 AM FORESTRY ENGINEER Temperature 36.4 C (97.6 F) 11/04/2024 10:33 AM FORESTRY ENGINEER Respiratory Rate 18 11/04/2024 10:3 3 AM FORESTRY ENGINEER Oxygen Saturation 98% 11/04/2024 10: 33 AM FORESTRY ENGINEER Inhaled Oxygen Concentration - - Weight 83.8 kg (184 lb 11.2 oz) 025 10:33 AM FORESTRY ENGINEER Height 166.4 cm (5' 5.5) 11/04/2024 10 :33 AM FORESTRY ENGINEER Body Mass Index 30.27 11/04/2024 10:33 AM FORESTRY ENGINEER Plan of Treatment Not on file Medical Devices Implanted Type Area Light Bulb Tester Device Identifier Shelf Expiration Date Model / Serial / Lot Pin Right: Foot Marker Right: Breast Bard Peripheral Vascular Ultraclip Bard 17ga 10cm 2 Trigger Permanent Ultrasound [id number] - [id number] Implanted:Qty: 1 on 03/28/2024 by Emre Lewis MD at [facility] Right: Breast Bard Peripheral Vascular [id number] / / Procedures Procedure Name Priority Date/Time [...] HPV HR 16 Not Detected Not Detected [facility] Comment:Testing performed by : [facility], [address] [place]., [address] HPV HR 18 Not Detected Not Detected [facility] Comment:Testing performed by : [facility], [address] [place]., [address] HPV HR Non 16/18 Not Detected Not [...] this test have been verified by the [facility] laboratory. Correlate with separately reported cytology results, as applicable. Interpretive data last revised 23 Testing performed by: [facility], [address] [place]., [address] Endocervical 04/08/2024 3:31 PM CDT 04/11/2024 9:24 AM CDT Narrative [facility] FRANKEL - 04/11/2024 11:51 PM CDT Clinical history and diagnosis->screening Testing type->Screening Last menstrual period (date if known)->postmenopausal Ami Seay MD LAB BODY FLUIDS AND STOOL S ORDERABLES Final Result [facility] [address] [facility] Department [place] [address] [facility] * Diagnostic Mammogram Bilateral W Seferino [...] has been scheduled to return to the [facility] for biopsy on 03/28/2024 at 2:30 [...] has been scheduled to return to the [facility] for biopsy on 03/28/2024 at 2:30 PM. [...] Anatomical Region Laterality Modality Other Historical Provider MD ENDOSCOPY PROCEDURES Cheyenne l Result from Last 3 Months or Most Recently Relevant to Health Maintenance Insurance [employer] Care Teams Golf Ball Cover Treater Relationship Specialty Start Date End Date Ileana Salinas NP [address] [place] [address] PCP - General Family Medicine 03/31/24 Yuki Abad MD [address] [facility] [address] [place] [address] Radiation Oncologist Radiation Oncology 08/16/18 Jodi Lott MD [address] [facility] [address] [place] [address] Medical Oncologist/Tobacco Sweeper Medical Oncology 08/16/18 Shiraz Rust, PhD [address] [facility] [address] [place] [address] Nurse Practitioner Radiation Oncology 08/16/18
[2025-02-07 16:11] VITALS: BP 129/79; PULSE 75; RESP 18; TEMP 36.6; O2SAT 98
--- NOTE | 2025-02-07 16:11 | ED.SKABFB ---
HPI - Skin/Abscess/Foreign Bdy General Chief complaint: Skin/Abscess/Foreign Body Stated complaint: Skin/Abscess/Foreign Body Time Seen by Provider: 02/07/25 16:20 Source: patient, RN notes reviewed and old records reviewed Mode of arrival: ambulatory Limitations: no limitations History of Present Illness HPI narrative: 59 year old female presents to [facility] care with complaints of poison annia rash for the past 2 week that has been spreading but now has small spot to the left side of face next to her eye. Patient reports that she has been using OTC calamine ointment to rash with no resolution. Patient admits that rash is itchy, denies any dysphagia or any respirator difficulty. MD complaint: rash Onset (ago): week(s) (2) Location: face (left side of face), LUE and LLE (thigh) Severity: moderate Quality: pruritic Treatments prior to arrival: OTC topical medication Related Data Home Medications ?Medication ?Instructions ?Recorded ?Confirmed ?Last Taken ?Type anastrozole 1 mg tablet 1 mg PO DAILY 06/16/21 06/16/21 Unknown History sertraline 50 mg tablet 50 mg PO DAILY 06/16/21 06/16/21 Unknown History Allergies Allergy/AdvReac Type Severity Reaction Status Date / Time loracarbef (From Lorabid) Allergy Diarrhea Verified 02/07/25 16:14 Penicillins Allergy Unknown Verified 02/07/25 16:14 Review of Systems Review of Systems: CONSTITUTIONAL: Denies fever, chills, or sweats. CARDIOVASCULAR: Denies chest pain, palpitations, or edema. RESPIRATORY: Denies cough or dyspnea. SKIN: Reports areas of red raised rash to left thigh and left forearm and now area of face by left eye which is itchy MUSCULOSKELETAL: Denies joint pain or myalgia. NEUROLOGIC: Denies headache, numbness, or weakness. All systems reviewed & are unremarkable except as noted in HPI and below PMFSH Past Medical History Medical History Breast cancer chemotherapy Anxiety and depression Surgical History Surgical History H/O: hysterectomy Social History Social History Smoking status: Never smoker Alcohol intake: current Alcohol use details: rare social Substance use type: does not use Living arrangements: with family Gender identity (if verbalized by the patient): Female Comments At time of signature, agree with nursing past medical, surgical, social and family history. There is no relevant family history pertinent to the presenting complaint Exam Narrative: GENERAL: Well-appearing, well-nourished, and in no acute distress. HEAD: Normocephalic, atraumatic. EYES: PERRLA, conjunctivae clear, and EOMI. ENT: Mucous membranes moist. Oropharynx without edema, erythema or lesions. NECK: Supple. No lymphadenopathy CHEST: Clear to auscultation. No respiratory distress.SAO2 98% on room air HEART: Regular rate and rhythm. SKIN: Warm, dry.? Patches of erythema and edema to left thigh and left arm for 2 weeks now has small patch on face near left eye rash itchy NEURO:? Alert and oriented x3. PSYCH: Normal mood and affect Course Course Emergency Course: Patient is aware of diagnosis, understands and agrees to treatment plan.? Anticipatory guidance given.? Patient agrees to follow-up as directed and is aware of reasons to seek care at the emergency department. Portions of this record may have been created with voice recognition software Level of Care: Express Care Visit Vital Signs Vital signs: Vital Signs Temperature 36.6 C 02/07/25 16:11 Pulse Rate 75 02/07/25 16:11 Respiratory Rate 18 02/07/25 16:11 Blood Pressure 129/79 02/07/25 16:11 Pulse Oximetry 98 02/07/25 16:11 Oxygen Delivery Room Air 02/07/25 16:11 Temperature 36.6 C 02/07/25 16:11 Pulse Rate 75 02/07/25 16:11 Respiratory Rate 18 02/07/25 16:11 Blood Pressure 129/79 02/07/25 16:11 Pulse Oximetry 98 02/07/25 16:11 Oxygen Delivery Room Air 02/07/25 16:11 Reviewed MDM - Skin/Abscess/Foreign Bdy MDM Narrative Medical decision making narrative: Does not appear at this time to be erythema multiforme, bullous, SJS, TEN; no evidence at this time to suggest RMSF, endocarditis or Lyme disease; patient looks well, nontoxic and is tolerating oral intake; no neurologic signs or symptoms; no headache, photophobia or neck pain; afebrile; appropriate for initial outpatient treatment; discussed the importance of follow-up, patient agrees; question, viral exanthema, contact dermatitis, allergic dermatitis, eczema, urticaria. No soft palate or uvula edema, no tongue, lip edema or other mucosal involvement, no respiratory compromise, no stridor, no wheezing, no wheezing, no history of syncope, no hypotension, no nausea, vomiting, or diarrhea.? Instructed patient to go to nearest ER immediately for any worsening symptoms including but not limited to: fever, spreading rash, pain, sore throat, headache, dizziness, chest pain, trouble breathing, or any symptoms concerning to the patient. Differential Diagnosis Differential diagnosis: Likely abscess of skin or subcutaneous tissue, urticaria, cellulitis, eczema and contact dermatitis Medical Records Attestation: I reviewed the patient's medical records. Critical Care Time Critical Care Time Critical Care Time: No Discharge Plan Discharge Clinical Impression: Poison annia dermatitis Patient Disposition: Home Condition: Stable Instructions: Poison Annia (ED) Additional Instructions: Apply triamcinolone ointment to rash 2times daily never apply to face watch for increasing infection--redness, swelling, drainage Tylenol or ibuprofen for any fever pain follow up with PCP in 7-10 days for a wound check recheck if develop fever, chills, increasing symptom Go to the ER if your symptoms become worse of if ANY new symptoms develop Use hydrocortisone ointment to the face only Zyrtec 10 mg daily for 10 Pepcid 20 mg daily for 10 May use Benadryl at bedtime If your symptoms persist, change or worsen significantly before you can contact your personal physician then please, without delay, go to the emergency department for further evaluation. Follow-up with PCP in 7-10 days or sooner if needed Follow up with PCP soon in regards to your blood pressure which is elevated above threshold for referral. Blood pressure above 120/80 may indicate pre-hypertension. 129/79 Patient Language: Slovenian Prescriptions: New triamcinolone acetonide 0.1 % ointment 1 applic topical BID Qty: 80 0RF Rx Instructions: Apply to rash twice daily never apply this to the face prednisone 10 mg tablet 10 mg PO DIRECTED Qty: 21 0RF Rx Instructions: see taper instructions 6 tabs day 1, 5 tabs day 2, 4 tabs day 3, 3 tabs day 4, 2 tabs day 5, to take 1 tab day 6 famotidine [Pepcid] 20 mg tablet 20 mg PO DAILY Qty: 10 0RF No Action anastrozole 1 mg tablet 1 mg PO DAILY sertraline 50 mg tablet 50 mg PO DAILY erythromycin 5 mg/gram (0.5 %) ointment 0.5 inch RIGHT EYE QID Qty: 3.5 0RF Follow-up/Referrals: Brad,Ileana Rey PAPER CONE MACHINE OPERATOR [Primary Care Provider] - Time of Disposition: 16:41 Quality Noy Coma Scale Eyes: Open Verbal: Oriented and Alert Motor: Follows Commands [place] Coma Total Score: 15
== END 2025-02-07 16:52 | disposition home or self-care (01) ==
PROVIDERS: Emergency Provider Registered Nurse; PCP Nurse Practitioner
DX: L23.7 Allergic contact dermatitis due to plants, except food (principal); F41.9 Anxiety disorder, unspecified; F32.A Depression, unspecified; Z85.3 Personal history of malignant neoplasm of breast; Z92.21 Personal history of antineoplastic chemotherapy
CPT/HCPCS: 99213; G0463

== ENCOUNTER 2025-03-12 10:40 | Emergency (ER) | payer OTHER, SELFPAY ==
[2025-03-12 10:49] VITALS: BP 134/69; PULSE 69; RESP 17; TEMP 36.6; O2SAT 98
--- NOTE | 2025-03-12 11:07 | ED.SKABFB ---
HPI - Skin/Abscess/Foreign Bdy General Chief complaint: Skin/Abscess/Foreign Body Stated complaint: Skin/Abscess/Foreign Body Source: patient Mode of arrival: ambulatory Limitations: no limitations History of Present Illness HPI narrative: Patient is a 59-year-old female who presents to clinic with complaints of poison annia to her bilateral arms and right leg x 2 days. She states that she has poison annia in her yard and she knows how to identify it, but she must have still got into it. She has tried Benadryl cream and triamcinolone cream on it, but has had minimal relief. Patient states that she is almost out of triamcinolone. Denies any shortness of breath, fevers, nausea, or diarrhea. Related Data Home Medications ?Medication ?Instructions ?Recorded ?Confirmed ?Last Taken ?Type anastrozole 1 mg tablet 1 mg PO DAILY 06/16/21 03/12/25 Unknown History sertraline 50 mg tablet 50 mg PO DAILY 06/16/21 03/12/25 Unknown History amlodipine 10 mg tablet mg 03/12/25 Unknown History atorvastatin 20 mg tablet mg 03/12/25 Unknown History omeprazole 40 mg capsule,delayed mg 03/12/25 Unknown History release Allergies Allergy/AdvReac Type Severity Reaction Status Date / Time Penicillins Allergy Unknown Unknown Verified 03/12/25 11:15 loracarbef (From Lorabid) AdvReac Intermediate Diarrhea Verified 03/12/25 10:54 Review of Systems Review of Systems: CONSTITUTIONAL: Denies body aches, fever, chills, or sweats. EYES: Denies visual changes, redness, or discharge. ENT: Denies rhinorrhea, congestion CARDIOVASCULAR: Denies chest pain, palpitations, or edema. RESPIRATORY: Denies cough or dyspnea. GASTROINTESTINAL: Denies abdominal pain, nausea, vomiting, or diarrhea. SKIN: ?Reports poison annia to her bilateral arms and right leg. MUSCULOSKELETAL: Denies back pain, joint pain, or myalgia. NEUROLOGIC: Denies headache, numbness, tingling, or weakness. All systems reviewed & are unremarkable except as noted in HPI and below PMFSH Past Medical History Medical History Breast cancer chemotherapy Anxiety and depression Surgical History Surgical History H/O: hysterectomy Social History Social History Smoking status: Never smoker Alcohol intake: current Alcohol use details: rare social Substance use type: does not use Living arrangements: with family Gender identity (if verbalized by the patient): Female Comments At time of signature, I have reviewed and agree with nursing past medical, surgical, social and family history unless otherwise noted. Please see nursing chart for further information. There is no relevant family history pertinent to the presenting complaint. Exam Narrative: GENERAL: Well-appearing HEAD: Normocephalic, atraumatic. EYES: ?conjunctivae clear, and EOMI. ENT: Mucous membranes moist. Oropharynx without edema, erythema or lesions. NECK: Supple. No lymphadenopathy CHEST: Clear to auscultation. HEART: Regular rate and rhythm. SKIN: Warm, dry. ?Erythemic, itchy papules noted to bilateral forearms and right upper leg. No pain with palpation. No induration, no crusting, no warmth. NEURO: ?Alert and oriented x3.? Course Course Level of Care: Express Care Visit Vital Signs Vital signs: Vital Signs Temperature 97.9 F 03/12/25 10:49 Pulse Rate 69 03/12/25 10:49 Respiratory Rate 17 03/12/25 10:49 Blood Pressure 134/69 03/12/25 10:49 Pulse Oximetry 98 03/12/25 10:49 Oxygen Delivery Room Air 03/12/25 10:49 Temperature 97.9 F 03/12/25 10:49 Pulse Rate 69 03/12/25 10:49 Respiratory Rate 17 03/12/25 10:49 Blood Pressure 134/69 03/12/25 10:49 Pulse Oximetry 98 03/12/25 10:49 Oxygen Delivery Room Air 03/12/25 10:49 Reviewed MDM - Skin/Abscess/Foreign Bdy MDM Narrative Medical decision making narrative: Discussed physical exam findings. Prednisone and triamcinolone prescriptions given. Advised supportive measures and signs/symptoms to go to the ER. Pt is appropriate for outpatient treatment and follow up. Differential Diagnosis Differential diagnosis: Likely cellulitis, contact dermatitis and other ( poison annia) Critical Care Time Critical Care Time Critical Care Time: No Discharge Plan Discharge Clinical Impression: Poison annia Patient Disposition: Home Condition: Stable Instructions: Antibiotic Form, Poison Annia (ED) Additional Instructions: Take steroids as prescribed. Use triamcinolone only in the itchy spots. Prevention is always better than treatment. Learn to identify poison annia, oak, and sumac and avoid it. Wear long sleeves, long pants, shoes, and socks. If you touched the plant, try to keep your hands away from your eyes, mouth, and face. Wash the skin thoroughly with soap and cool water as soon as possible. Scrub under the fingernails with a brush to prevent spreading of the resin to other parts of the body by touching or scratching. Remember to wash any clothing with soap and hot water as the resin can persist for many months and cause further dermatitis. You should NOT use antihistamine creams or lotions, anesthetic creams containing benzocaine, or antibiotic creams containing neomycin or bacitracin to the skin. These creams or ointments could make the rash worse. For some people, adding oatmeal to a bath, applying cool wet compresses, and applying calamine lotion may help to relieve itching. Once the blisters begin weeping fluid, astringents containing aluminum acetate (Burow's solution) and [place] may help to relieve the rash. IF symptoms get worse to follow up with your primary care provider or seek ER visit if you developing difficulty breathing, weakness, dizziness. Patient Language: Spanish Prescriptions: New prednisone 10 mg tablet See Rx Instructions .Route .COMPLEX Qty: 30 0RF Rx Instructions: 60mg PO daily on day 1, 40mg PO daily for days 2-4, 30 mg PO daily on days 5-6, 20mg PO daily on days 7-8, 10mg PO daily on days 9-10. triamcinolone acetonide 0.1 % cream 1 applic topical BID Qty: 30 0RF No Action anastrozole 1 mg tablet 1 mg PO DAILY sertraline 50 mg tablet 50 mg PO DAILY triamcinolone acetonide 0.1 % ointment 1 applic topical BID Qty: 80 0RF Rx Instructions: Apply to rash twice daily never apply this to the face famotidine [Pepcid] 20 mg tablet 20 mg PO DAILY Qty: 10 0RF atorvastatin 20 mg tablet omeprazole 40 mg capsule,delayed release(DR/EC) amlodipine 10 mg tablet Follow-up/Referrals: Brad,Ileana Rey, RO[employer] [Primary Care Provider] - Time of Disposition: 11:09
== END 2025-03-12 12:09 | disposition home or self-care (01) ==
PROVIDERS: PCP Nurse Practitioner
DX: L23.7 Allergic contact dermatitis due to plants, except food (principal); F41.9 Anxiety disorder, unspecified; F32.A Depression, unspecified; Z85.3 Personal history of malignant neoplasm of breast; Z92.21 Personal history of antineoplastic chemotherapy
CPT/HCPCS: 99213; G0463